=== PATIENT | female | born 1970 | race Hispanic/Latino ===

== ENCOUNTER 2024-10-21 23:49 | Emergency (ER) | payer SELFPAY ==
[~2024-10-21] VITALS: Ht 160 cm; Wt 52.2 kg
--- NOTE | 2024-10-22 00:29 | HMCIMG ---
EXAM: CR Chest, 1 view CLINICAL HISTORY: Fall. COMPARISON: None provided. FINDINGS: The lungs show no infiltrates or other acute findings. No pleural effusion or pneumothorax. The cardiomediastinal silhouette is within normal limits. No acute osseous abnormality. Old healed fracture of the right 5th and 6th ribs. IMPRESSION: No acute cardiopulmonary process is evident. Old healed fracture of the right 5th and 6th ribs. /[place]
[2024-10-22 00:33] LABS: IMMATURE GRANULOCYTE ABSOLUTE 0.02 K/uL (0-1); NUCLEATED RED BLOOD CELLS 0.0 % (0.0-0.19); PLATELET COUNT (AUTO) 131 K/uL (130-400); RED BLOOD CELL COUNT(AUTO) 2.99 MIL/uL (4.00-5.50); RED CELL DISTRIBUTION WIDTH 14.9 % (11.0-15.5); WHITE BLOOD COUNT (AUTO) 5.6 K/uL (4.8-10.8)
[2024-10-22 00:40] LABS: CREATININE 0.5 mg/dL (0.5-1.0); GLOMERULAR FILTR. RATE CALC 111.0 mL/min (>90); GLUCOSE,RANDOM 64.0 mg/dL (70-105); SODIUM SERUM 135.0 mmol/L (136-145); UREA NITROGEN, BLOOD 5.0 mg/dL (7-18)
[2024-10-22] MEDS: MAGNESIUM 2GM PREMIX 50ML 50 ML IV SCH (01:06)
[2024-10-22] MEDS: 0.9%NACL 1000ML 1,000 ML IV ONE (01:10)
[2024-10-22] MEDS: MAGNESIUM OXIDE 400 MG TABLET PO ONE (01:15)
--- NOTE | 2024-10-22 01:24 | NUR ---
PT INFORMED THAT PLAN OF CARE INCLUDES IV ELECTROLYTE REPLACEMENT AND ADMISSION TO THE HOSPITAL FOR FURTHER CARE. PT REFUSED, REQUESTING TO LEAVE AMA. PT EDUCATED ON IMPORTANCE OF ELECTROLYTE REPLACEMENT FOR CRITICALLY LOW VALUES OF K+ 2.2 AND MAG 0.8 INVOLVING CARDIAC RISKS. PT AND PARTNER VERBALIZED UNDERSTANDING OF INFORMATION PROVIDED AND CONTINUED TO REQUEST AMA. IV DISCONTINUED, HEMOSTASIS ACHIEVED IN EXPECTED TIMEFRAME. NO SIGNS OF ACUTE DISTRESS NOTED. ALL BELONGINGS SENT WITH PT AT TIME OF DEPARTURE FROM ER 4. PT INFORMED TO RETURN TO ER IF DECISION CHANGES.
[2024-10-22 01:28] VITALS: BP 148/82; PULSE 72; RESP 18; TEMP 98.2; O2SAT 97
--- NOTE | 2024-10-22 01:45 | ERN ---
ED Note History of Present Illness Stated Complaint: C/O LAC TO HEAD AFTER FALL YESTERDAY Chief Complaint: Mechanical Fall Time Seen by MD: 23:56 Time Seen by Midlevel: 23:56 Dictation: The patient is a 53-year-old female with no significant past medical history who presents to the emergency department with complaints of dizziness, nausea nonbloody vomiting, headache and laceration to the back of the head after she tripped with a her dog and fell backwards around 10:00 p.m.. Patient reports she was standing and her dog came running behind her which caused her to fall backwards. Patient denies any LOC, denies any use of blood thinners. Patient denies any back pain, neck pain, extremity pain, abdominal or chest pain. Patient reports she feels a little bit dizzy but her dizziness was worse this morning. Allergies: Coded Allergies: latex (Unverified Allergy, Unknown, 10/21/24) Past Medical History Past Medical History: No Pertinent History Surgical History: Other RN Note Reviewed/Agreed w/PFSH: Yes Review of System Dictation Constitutional: Negative for fever,chills, and weight loss Eyes: Negative for injury, pain,redness, and discharge ENT: Negative for injury,pain or swelling Cardiovascular: Negative for chest pain, palpitations, and edema Respiratory: Negative for shortness of breath, cough, and wheezing, Abdomen/GI: Negative for abdominal pain, diarrhea, and constipation positive for nausea and vomiting Back: Negative for injury and pain : Negative for injury, bleeding and discharge MS/Extremity: Negative for injury and deformity Skin: Negative for rash, and discoloration positive for occipital laceration Neuro: Negative for weakness, numbness, tingling, and seizure positive for headache and dizziness Psych: Negative for suicide ideation, homicidal ideation, and hallucinations Initial Vital Sign VS Vital Signs Date Time Temp Pulse Resp B/P (MAP) Pulse Ox O2 Delivery O2 Flow Rate FiO2 10/21/24 23:54 98.4 85 20 138/84 99 Room Air 10/22/24 00:21 0 21 Physical Exam Dictation Vital Signs reviewed General Appearance: Alert, oriented x 3, no acute distress, well developed, nourished. Head and Face: non-traumatic. Eyes: PERRL, pink conjunctivas, eyelid no trauma, anterior chamber with arcus senilis. Ears: Pinnas intact and no signs of trauma or erythema ear canals clear and no discharge TM no erythema Nose: No discharge, no bleeding. Oropharynx: Mouth normal, tongue pink. pharynx clear,no erythema, tonsils no exudates, no abscesses noted, mucous membrane moist Neck: Supple, non-tender, no thyromegaly, no masses, no JVD, no bruits Breast:Deferred Chest:No tenderness, no crepitus, no paradoxical movement, no retractions Lungs:Clear, well-ventilated, symmetric, no rales, no wheezing, no rhonchi, no stridor, good breath sounds bilaterally Heart: Regular rate, regular rhythm, no murmur, no gallops Vascular: no peripheral edema, Abdomen: Soft, positive bowel sounds, nondistended, no guarding, nontender, no rebound, no masses no hepatomegaly, no splenomegaly, no Nevarez's sign, no hernias. Rectal: Deferred Genital: Deferred Neurological: Normal speech, motor function intact, sensory function intact Musculoskeletal: Neck nontender, full range of motion, back nontender, full range of motion, Extremities: nontender, full range of motion Skin: Color pink, dry, no turgor, no rash, no abrasions, no contusions. Dry blood noted to scalp, Lymphatic: Deferred Results (Laboratory/Radiology) Laboratory/Radiology Laboratory Tests Test 10/22/24 00:20 White Blood Count 5.6 K/uL (4.8-10.8) Red Blood Count 2.99 MIL/uL (4.00-5.50) L Hemoglobin 10.0 g/dL (12.0-16.0) L Hematocrit 27.8 % (36-48) L Mean Corpuscular Volume 93.0 fL (79-99) Mean Corpuscular Hemoglobin 33.4 pg (27.0-33.0) H Mean Corpuscular Hemoglobin Concent 36.0 g/dL (32.0-36.0) Red Cell Distribution Width 14.9 % (11.0-15.5) Platelet Count 131 K/uL (130-400) Mean Platelet Volume 10.6 fL (7.5-10.5) H Immature Granulocyte % (Auto) 0.4 % (0-1) Neutrophils (%) (Auto) 75.9 % (40.0-77.0) Lymphocytes (%) (Auto) 15.3 % (21.0-51.0) L Monocytes (%) (Auto) 7.3 % (3.0-13.0) Eosinophils (%) (Auto) 0.4 % (0.0-8.0) Basophils (%) (Auto) 0.7 % (0.0-5.0) Neutrophils # (Auto) 4.3 K/uL (1.8-7.7) Lymphocytes # (Auto) 0.9 K/uL (1.0-4.8) L Monocytes # (Auto) 0.4 K/uL (0.1-1.0) Eosinophils # (Auto) 0.02 K/uL (0.00-0.70) Basophils # (Auto) 0.04 K/uL (0.00-0.20) Absolute Immature Granulocyte (auto 0.02 K/uL (0-1) Nucleated Red Blood Cells 0.0 % (0.0-0.19) Sodium Level 135 mmol/L (136-145) L Potassium Level 2.2 mmol/L (3.5-5.1) *L Chloride Level 94 mmol/L (101-111) L Carbon Dioxide Level 24 mmol/L (21-32) Blood Urea Nitrogen 5 mg/dL (7-18) L Creatinine 0.5 mg/dL (0.5-1.0) Glomerular Filtration Rate Calc 111 mL/min (>90) Random Glucose 64 mg/dL (70-105) L Total Calcium 8.1 mg/dL (8.5-10.1) L Magnesium Level 0.80 mg/dL (1.80-2.40) *L Troponin I High Sensitivity 19 ng/L (4-50) Labs Reviewed?: Yes EKG: (+) rhythm (Sinus rhythm) EKG Comment: Date:10/22/2024 Time:0016 Ventricular rate:77 PA interval:118 QRS duration:83 QT/QTc:379/430 EKG interpretation: Sinus rhythm, Reviewed by ED Attending no STEMI ED Course ED Course Orders Procedure Category Date Status Time Tetanus,Diphtheria PHA 10/22/24 Complete Tox [Adult] (Diphther 00:30 Acetaminophen 500mg PHA 10/22/24 Complete Tab (Tylenol 500mg T 00:30 0.9%Nacl 1000ml (Ns PHA 10/22/24 Complete 1000ml) 00:30 Ondansetron 4mg Inj PHA 10/22/24 Complete (Zofran 4mg Inj) 00:30 Cbc With Differential LAB 10/22/24 Complete 00:07 Troponin I High LAB 10/22/24 Complete Sensitivity 00:07 12 Lead Ekg Tracing- EKG 10/22/24 Logged Technical 00:07 Basic Metabolic Panel LAB 10/22/24 Complete 00:07 Chest 1vw RAD 10/22/24 Resulted 00:07 Magnesium LAB 10/22/24 Complete 00:44 Potassium Bicarb/Cit PHA 10/22/24 Complete Ac 25meq (K-Lyte Ta 01:00 Potassium Chloride PHA 10/22/24 Complete 10meq/100ml ([place] 01:00 Potassium Bicarb/Cit PHA 10/22/24 Complete Ac 25meq (K-Lyte Ta 01:00 Magnesium 2gm Premix PHA 10/22/24 Complete 50ml (Magnesium 2gm 01:00 Potassium Bicarb/Cit PHA 10/22/24 Complete Ac 25meq (K-Lyte Ta 01:30 Magnesium Oxide PHA 10/22/24 Complete (Mag-Ox) 01:30 Current Medications Medications (Trade) Dose Ordered Sig/Ludin Route PRN Reason Start Time Stop Time Status Last Admin Dose Admin Acetaminophen (TYLenol 500MG TAB) 1,000 mg ONCE ONCE PO 10/22/24 00:30 10/22/24 00:31 DC 10/22/24 01:13 Magnesium Oxide (Mag-Ox) 400 mg ONCE ONCE PO 10/22/24 01:30 10/22/24 01:30 DC 10/22/24 01:15 Magnesium Sulfate 50 ml @ 0 mls/hr PROTOCOL IV 10/22/24 01:00 10/22/24 01:09 DC Ondansetron HCl (zoFRAN 4MG INJ) 4 mg ONCE ONCE IVP 10/22/24 00:30 10/22/24 00:31 DC 10/22/24 01:12 Potassium Bicarbonate (K-Lyte Tablet Eff 25 Meq Tablet.eff) 25 meq ONCE ONCE PO 10/22/24 01:00 10/22/24 01:01 DC Potassium Bicarbonate (K-Lyte Tablet Eff 25 Meq Tablet.eff) 50 meq ONCE ONCE PO 10/22/24 01:00 10/22/24 00:55 DC Potassium Bicarbonate (K-Lyte Tablet Eff 25 Meq Tablet.eff) 50 meq ONCE ONCE PO 10/22/24 01:30 10/22/24 01:30 DC 10/22/24 01:13 Potassium Chloride 100 ml @ 100 mls/hr ONCE ONCE IV 10/22/24 01:00 10/22/24 01:30 DC Sodium Chloride 1,000 ml @ 0 mls/hr ONCE ONCE IV 10/22/24 00:30 10/22/24 00:31 DC Tetanus/ Diphtheria Toxoids Adsorbed (DiphthERIA-teTANUS TOXOID [ADULT]/ DECAVAC) 0.5 ml ONCE ONCE IM 10/22/24 00:30 10/22/24 00:31 DC 10/22/24 01:12 Vital Signs Date Time Temp Pulse Resp B/P (MAP) Pulse Ox O2 Delivery O2 Flow Rate FiO2 10/22/24 01:28 98.2 72 18 148/82 97 Room Air* 0 21 10/22/24 00:21 98.1 76 18 141/88 98 Room Air* 0 21 10/21/24 23:54 98.4 85 20 138/84 99 Room Air Medical Decision Making MDM MDM: The patient is a 53-year-old female with no significant past medical history who presents to the emergency department with complaints of dizziness, nausea nonbloody vomiting, headache and laceration to the back of the head after she tripped with a her dog and fell backwards around 10:00 p.m.. Patient reports she was standing and her dog came running behind her which caused her to fall backwards. Patient denies any LOC, denies any use of blood thinners. Patient denies any back pain, neck pain, extremity pain, abdominal or chest pain. Patient reports she feels a little bit dizzy but her dizziness was worse this morning. CBC showed no leukocytosis, mild normocytic anemia, chemistry showed hyponatremia, hypokalemia, hypomagnesemia, slightly decreased blood sugar, negative troponin. X-ray showed chronic fractures. Patient refused CT scan. Patient also refused admission to the hospital for electrolyte imbalance. At this time patient wants to leave and refused to get IV magnesium and IV potassium. Patient reports she does not want to stay any longer. Patient is alert and oriented x4, ambulatory, not currently in any distress, stable vital signs. No actively bleeding from occipital laceration. Patient agreed to take p.o. potassium and p.o. magnesium before leaving. Risks and benefits including lethal cardiac arrhythmias, , worsening condition, disability discussed with the patient and patient's significant other. Patient continues to want to leave against medical advice. Patient advised to return if she changed her mind or if symptoms worsen. Differential diagnosis: Intracerebral hemorrhage, dehydration, electrolyte imbalance, ACS DX & DISP Disposition: AMA Departure Condition: Against Medical Advice Referrals: NONE (PCP) I have reviewed the case, and I agree with, Diagnosis and Plan TU GARCIA [facility] Oct 22, 2024 01:45
--- NOTE | 2024-10-22 05:35 | EKG ---
[facility] Test Date: 2024-10-22 Test Time: 00:16:07 Pat Name: MAGGY GODFREY Department: ED Room: Gender: F [employer]ist: [id number] Requested By: TU GARCIA Order Number: [id number] Reading MD: Alexei Hair Measurements Intervals [place] Rate: 77 P: 69 NC: 118 QRS: -17 QRSD: 83 T: 168 QT: 379 QTc: 430 Interpretive Statements Sinus rhythm Probable LVH with secondary repol abnrm No previous ECG available for comparison Electronically Signed On 10-24-2024 10:50:37 CDT by Alexei Hair Please click the below link to view image of tracing.
== END 2024-10-22 01:30 | disposition left against medical advice (07) ==
LOC: EDH 23:49
DX: R42 Dizziness and giddiness (principal); R51.9 Headache, unspecified; R11.0 Nausea
CPT/HCPCS: 99285; 83735; 84484; 80048; 85025; 36415; 96374; 71045; 90714; 90471; 93005; J2405; 96372